=== PATIENT | female | born 1945 | race Caucasian/White ===

== ENCOUNTER 2025-03-28 08:18 | Inpatient (IN) | payer OTHER ==
[~2025-03-28] VITALS: Ht 157.5 cm; Wt 70.3 kg
[2025-03-28 08:23] VITALS: O2SAT 97
[2025-03-28 10:10] LABS: CLARITY URINE CLEAR (CLEAR); COLOR URINE YELLOW (YELLOW); GLUCOSE URINE NEGATIVE (NEGATIVE); KETONES URINE NEGATIVE (NEGATIVE); LEUKOCYTE ESTERASE URINE NEGATIVE (NEGATIVE); NITRITE URINE NEGATIVE (NEGATIVE); OCCULT BLOOD URINE TRACE (NEGATIVE); PH URINE 7.5 (4.5-8.0); PROTEIN URINE TRACE (NEGATIVE); SPECIFIC GRAVITY URINE 1.011 (1.005-1.030); UROBILINOGEN URINE 0.2 E.U./dL (0.2-1.0)
[2025-03-28 10:29] LABS: BASOPHILS % 0.6 % (0.0-2.0); EOSINOPHILS % 0.1 % (0.0-5.0); HEMATOCRIT. 37.8 % (36.0-48.0); HEMOGLOBIN. 11.8 g/dL (12.0-16.0); LYMPHOCYTES % 17.0 % (20.0-50.0); MEAN PLATELET VOLUME 9.7 fl (7.4-10.4); MONOCYTES % 7.8 % (2.0-8.0); NEUTROPHILS % 74.5 % (40.0-76.0); PLATELET 291 x1000/uL (130-400); RED BLOOD CELL COUNT 4.57 mill/uL (4.2-5.4); RED CELL DISTRIBUTION WIDTH 16.5 % (11.6-14.6)
[2025-03-28 10:43] LABS: CREATININE 1.3 mg/dL (0.6-1.0); UREA NITROGEN BLOOD 15 mg/dL (9-23)
[2025-03-28 10:44] LABS: TROPONIN I HIGH SENSITIVITY 33 ng/L (3.0-34)
[2025-03-28 11:15] LABS: BACTERIA URINE 1+; RBC URINE 0-2 /hpf (0-2); SQUAMOUS EPITHELIAL CELL URINE 1+ /lpf (RARE/1+); WBC URINE 0-2 /hpf (0-2)
[2025-03-28] MEDS ORDERED: IPRATROPIUM/ALBUTEROL 0.5-3(2.5)MG/3ML NEB HHN PRN (13:15)
[2025-03-28] MEDS ORDERED: ONDANSETRON HCL 4MG/2ML INJ IV PRN (13:15)
[2025-03-28] MEDS ORDERED: KETOROLAC 30MG/ML VIAL IV PRN (13:15)
[2025-03-28] MEDS ORDERED: GUAIFENESIN 200MG/10ML SUGAR FREE UDC PO PRN (13:15)
[2025-03-28] MEDS ORDERED: MORPHINE SULFATE 4 MG/ML INJ (FOR IV/IM USE) IV PRN (13:15)
[2025-03-28] MEDS: INSULIN LISPRO 100 UNITS/ML SUBCUT SCH (13:20)
[2025-03-28] MEDS ORDERED: DEXTROSE 50% WATER 50ML SYRINGE IV PRN (13:30)
[2025-03-28] MEDS ORDERED: NALOXONE HCL 0.4MG/ML VIAL IV PRN (13:30)
[2025-03-28] MEDS: FAMOTIDINE 20MG/2ML VIAL IV SCH (14:04)
[2025-03-28] MEDS: AMLODIPINE 5MG TABLET PO SCH (14:05)
[2025-03-28] MEDS: MORPHINE SULFATE 10 MG/ML INJ (NOT FOR IM USE) IV PRN (14:16)
[2025-03-28] MEDS: DEXT 5%/0.45% NACL 1000ML 1,000 ML IV SCH (14:27)
[2025-03-28] MEDS ORDERED: FAMO20TA8 PO (15:02)
[2025-03-28] MEDS ORDERED: SITA100T11 PO (15:02)
[2025-03-28] MEDS ORDERED: LOSA50TA41 PO (15:02)
[2025-03-28] MEDS ORDERED: DONE10TA43 PO (15:02)
[2025-03-28] MEDS ORDERED: ALEN70TA79 PO (15:02)
[2025-03-28] MEDS ORDERED: APIX2.5T PO (15:02)
[2025-03-28 15:29] VITALS: BP 178/78; PULSE 90; RESP 18; TEMP 36.8072
[2025-03-28] MEDS: CEFTRIAXONE 1GM/50ML 50 ML IV SCH (16:07)
[2025-03-28] MEDS: BLOOD SUGAR DIAGNOSTIC STRIP TEST SCH (16:11)
[2025-03-28 16:30] VITALS: BP 154/80; PULSE 80; RESP 18; TEMP 36.6; O2SAT 100
[2025-03-28] MEDS: HYDROCODONE/ACETAMINOPHEN 10/325MG TABLET PO PRN (17:16)
[2025-03-28 17:45] LABS: TRIGLYCERIDE 102 mg/dL (0-150)
[2025-03-28 17:46] LABS: LDL CHOLESTEROL 99 mg/dL (5-100)
[2025-03-28 17:47] LABS: ASPARTATE AMINOTRANSFERASE 31 IU/L (<34); BILIRUBIN DIRECT 0.2 mg/dL (<=3.0); BILIRUBIN TOTAL 0.5 mg/dL (0.1-1.0); PROTEIN TOTAL 6.9 g/dL (6.0-8.3)
[2025-03-28 17:50] LABS: T4 FREE 1.27 ng/dL (0.89-1.76)
[2025-03-28] MEDS ORDERED: ASPI-1497 PO (18:49)
[2025-03-28 19:28] LABS: TROPONIN I HIGH SENSITIVITY 27 ng/L (3.0-34)
[2025-03-28 19:30] LABS: PHOSPHORUS 2.5 mg/dL (2.5-4.9)
[2025-03-28 20:00] VITALS: BP 150/78; PULSE 83; RESP 18; TEMP 36.1; O2SAT 98
[2025-03-29] VITALS (7 sets, daily range): BP systolic 124–170; BP diastolic 68–83; PULSE 80–99; RESP 15–18; TEMP 36.3–36.7; O2SAT 96–98
[2025-03-29 07:34] LABS: TROPONIN I HIGH SENSITIVITY 24.0 ng/L (3.0-34)
[2025-03-29 07:39] LABS: CREATININE 1.3 mg/dL (0.6-1.0)
[2025-03-29 07:40] LABS: UREA NITROGEN BLOOD 10.0 mg/dL (9-23)
[2025-03-29 07:42] LABS: BASOPHILS % 0.6 % (0.0-2.0); EOSINOPHILS % 0.5 % (0.0-5.0); HEMATOCRIT. 37.2 % (36.0-48.0); HEMOGLOBIN. 11.6 g/dL (12.0-16.0); LYMPHOCYTES % 11.9 % (20.0-50.0); MEAN PLATELET VOLUME 10.3 fl (7.4-10.4); MONOCYTES % 5.9 % (2.0-8.0); NEUTROPHILS % 81.1 % (40.0-76.0); PLATELET 256 x1000/uL (130-400); RED BLOOD CELL COUNT 4.50 mill/uL (4.2-5.4); RED CELL DISTRIBUTION WIDTH 17.0 % (11.6-14.6)
[2025-03-29] MEDS: FERROUS SULFATE 325MG TABLET PO SCH (08:13)
[2025-03-29] MEDS: KETOROLAC 15MG/ML VIAL IV PRN (10:03)
[2025-03-29 12:43] LABS: *AMPHETAMINES SCREEN URINE NEGATIVE (NEGATIVE); *BARBITURATES SCREEN URINE NEGATIVE (NEGATIVE); *BENZODIAZEPINES SCREEN URINE NEGATIVE (NEGATIVE); *COCAINE SCREEN URINE NEGATIVE (NEGATIVE); CANNABINOID URINE SCREEN NEGATIVE (NEGATIVE); ECSTASY MDMA SCREEN URINE NEGATIVE (NEGATIVE); METHADONE URINE SCREEN NEGATIVE (NEGATIVE); OPIATES URINE SCREEN NEGATIVE (NEGATIVE); PHENCYCLIDINE URINE SCREEN NEGATIVE (NEGATIVE)
[2025-03-29] MEDS: CLONIDINE 0.1MG TABLET PO PRN (13:19)
[2025-03-29] MEDS: METOPROLOL SUCCINATE 50MG ER TABLET PO SCH (13:20)
[2025-03-30] VITALS: BP 120/60; PULSE 80; RESP 18; TEMP 36.1; O2SAT 98
[2025-03-30 04:00] VITALS: BP 130/59; PULSE 88; RESP 19; TEMP 36.7; O2SAT 100
[2025-03-30 04:25] LABS: PLATELET 263 x1000/uL (130-400); RED BLOOD CELL COUNT 4.60 mill/uL (4.2-5.4); RED CELL DISTRIBUTION WIDTH 17.1 % (11.6-14.6)
[2025-03-30 04:38] LABS: CREATININE 1.0 mg/dL (0.6-1.0); UREA NITROGEN BLOOD 9.0 mg/dL (9-23)
[2025-03-30 05:29] LABS: INR 1.0
[2025-03-30] MEDS ORDERED: VANCOMYCIN HCL 1GM VIAL ONE (06:03)
[2025-03-30] MEDS ORDERED: FENTANYL CITRATE/PF 50MCG/ML 2ML VIAL ONE (06:51)
[2025-03-30] MEDS ORDERED: PROPOFOL 200MG/20ML VIAL IV ONE (06:52)
[2025-03-30] MEDS ORDERED: EPHEDRINE SULFATE 50MG/ML VIAL ONE (06:52)
[2025-03-30] MEDS ORDERED: LIDOCAINE HCL 1% 10 MG/ML 10ML VIAL ONE (06:53)
[2025-03-30] MEDS ORDERED: TRANEXAMIC ACID 1000MG PREMIX 200 ML IV ONE (07:24)
[2025-03-30] MEDS ORDERED: ATROPINE SULFATE 1MG/10ML SYR ONE (07:34)
[2025-03-30] MEDS ORDERED: NEOSTIGMINE METHYLSULFATE 1MG/ML 10 ML VIAL ONE (07:34)
[2025-03-30] MEDS ORDERED: GLYCOPYRROLATE 0.2 MG/ML 2ML VIAL ONE ×2 (07:35)
[2025-03-30] MEDS ORDERED: ONDANSETRON HCL 4MG/2ML INJ ONE (07:43)
[2025-03-30] MEDS: LABETALOL 5MG/ML 4ML INJ IV NR (08:27)
[2025-03-30] MEDS: HYDROMORPHONE HCL/PF 1MG/ML INJ IV PRN ×2 (08:28→09:00)
[2025-03-30] MEDS ORDERED: HYDRALAZINE 20MG/ML VIAL IV PRN ×2 (08:30)
[2025-03-30] MEDS ORDERED: ONDANSETRON HCL 4MG/2ML INJ IV PRN (08:30)
[2025-03-30] MEDS ORDERED: FAMOTIDINE 20MG/2ML VIAL IV PRN (08:30)
[2025-03-30] MEDS ORDERED: MEPERIDINE HCL/PF 25MG/ML CPJ IV PRN (08:30)
[2025-03-30] MEDS ORDERED: LABETALOL 5MG/ML 4ML INJ IV PRN (08:30)
[2025-03-30] MEDS: ACETAMINOPHEN 1,000MG/100ML PREMIX IV PRN (08:34)
[2025-03-30] MEDS: ASPIRIN 325MG EC TABLET PO SCH (09:00)
[2025-03-30] MEDS ORDERED: CEFAZOLIN 1000MG PREMIX 50 ML IV SCH (09:00)
[2025-03-30 12:00] VITALS: BP 130/74; PULSE 120; RESP 19; TEMP 36.1; O2SAT 95
[2025-03-30] MEDS: CEFAZOLIN 1000MG PREMIX 50 ML IV SCH (14:04)
[2025-03-30 16:00] VITALS: BP 165/84; PULSE 104; RESP 16; TEMP 36.3; O2SAT 98
[2025-03-30 20:00] VITALS: BP 117/54; PULSE 86; RESP 18; TEMP 36.4; O2SAT 100
[2025-03-30] MEDS: BLOOD SUGAR DIAGNOSTIC STRIP TEST SCH (21:21)
[2025-03-31] VITALS: BP 107/58; PULSE 74; RESP 18; TEMP 36.8; O2SAT 95
[2025-03-31 04:00] VITALS: BP 108/56; PULSE 86; RESP 18; TEMP 36.4; O2SAT 97
[2025-03-31 08:00] VITALS: BP 132/64; PULSE 77; RESP 18; TEMP 36.6; O2SAT 97
[2025-03-31] MEDS: METOPROLOL SUCCINATE 25MG ER TABLET PO SCH (10:45)
[2025-03-31 12:00] VITALS: BP 117/57; PULSE 93; RESP 18; TEMP 36.6; O2SAT 96
[2025-03-31] MEDS: POTASSIUM CHLORIDE 20MEQ TABLET SR PO NR (12:07)
[2025-03-31 12:18] LABS: BASOPHILS % 0.3 % (0.0-2.0); EOSINOPHILS % 0.6 % (0.0-5.0); HEMATOCRIT. 33.3 % (36.0-48.0); HEMOGLOBIN. 10.5 g/dL (12.0-16.0); LYMPHOCYTES % 10.5 % (20.0-50.0); MEAN PLATELET VOLUME 10.1 fl (7.4-10.4); MONOCYTES % 11.0 % (2.0-8.0); NEUTROPHILS % 77.6 % (40.0-76.0); PLATELET 245 x1000/uL (130-400); RED BLOOD CELL COUNT 4.03 mill/uL (4.2-5.4); RED CELL DISTRIBUTION WIDTH 17.1 % (11.6-14.6)
[2025-03-31 13:32] LABS: CREATININE 1.1 mg/dL (0.6-1.0); UREA NITROGEN BLOOD 12 mg/dL (9-23)
[2025-03-31 13:34] LABS: ASPARTATE AMINOTRANSFERASE 90 IU/L (<34); BILIRUBIN TOTAL 0.8 mg/dL (0.1-1.0); PROTEIN TOTAL 5.9 g/dL (6.0-8.3)
[2025-03-31 16:00] VITALS: BP 123/71; PULSE 101; RESP 18; TEMP 36.6; O2SAT 95
[2025-03-31 20:00] VITALS: BP 140/59; PULSE 87; RESP 18; TEMP 36.3; O2SAT 97
[2025-04-01] VITALS: BP 132/67; PULSE 96; RESP 18; TEMP 36.6; O2SAT 96
[2025-04-01 07:02] LABS: CREATININE 1.0 mg/dL (0.6-1.0); UREA NITROGEN BLOOD 16.0 mg/dL (9-23)
[2025-04-01 07:22] LABS: BASOPHILS % 0.1 % (0.0-2.0); EOSINOPHILS % 0.3 % (0.0-5.0); HEMATOCRIT. 33.4 % (36.0-48.0); HEMOGLOBIN. 10.7 g/dL (12.0-16.0); LYMPHOCYTES % 10.8 % (20.0-50.0); MEAN PLATELET VOLUME 10.2 fl (7.4-10.4); MONOCYTES % 11.7 % (2.0-8.0); NEUTROPHILS % 77.1 % (40.0-76.0); PLATELET 255 x1000/uL (130-400); RED BLOOD CELL COUNT 4.14 mill/uL (4.2-5.4); RED CELL DISTRIBUTION WIDTH 17.0 % (11.6-14.6)
[2025-04-01 08:00] VITALS: BP 128/65; PULSE 80; RESP 17; TEMP 36.1; O2SAT 98
[2025-04-01 12:00] VITALS: BP 141/73; PULSE 90; RESP 18; RESP 28; TEMP 37.2; O2SAT 100
[2025-04-01 16:00] VITALS: BP 123/58; PULSE 85; RESP 18; TEMP 36.8; O2SAT 98
[2025-04-01 16:40] VITALS: PULSE 85; PULSE 96; RESP 18; RESP 20; TEMP 37
[2025-04-02 00:23] VITALS: BP 134/79; PULSE 93; RESP 18; TEMP 36.7; O2SAT 100
[2025-04-02 04:55] VITALS: BP 137/68; PULSE 90; RESP 17; TEMP 36.6; O2SAT 97
[2025-04-02 08:00] VITALS: BP 139/61; PULSE 88; RESP 18; TEMP 37.3
[2025-04-02 12:00] VITALS: BP 97/58; PULSE 97; RESP 18; TEMP 36.7
[2025-04-02 16:00] VITALS: BP 132/72; PULSE 116; RESP 20; TEMP 37.1; O2SAT 93
[2025-04-02 18:46] LABS: CREATININE 1.1 mg/dL (0.6-1.0); UREA NITROGEN BLOOD 26.0 mg/dL (9-23)
[2025-04-02 20:00] VITALS: BP 126/62; PULSE 110; RESP 17; TEMP 36.5; O2SAT 98
[2025-04-03] VITALS: BP 107/50; PULSE 99; RESP 17; TEMP 36.6; O2SAT 97
[2025-04-03 04:00] VITALS: BP 122/65; PULSE 96; RESP 18; TEMP 36.7; O2SAT 97
[2025-04-03 08:00] VITALS: BP 127/55; PULSE 84; RESP 17; TEMP 36.7; O2SAT 95
[2025-04-03 12:00] VITALS: BP 133/58; PULSE 87; RESP 18; TEMP 36.7; O2SAT 98
[2025-04-03 16:00] VITALS: BP 131/69; PULSE 81; RESP 19; TEMP 36.6; O2SAT 96
[2025-04-03 20:00] VITALS: BP 126/76; PULSE 86; RESP 17; TEMP 36.5; O2SAT 98
[2025-04-04] VITALS: BP 116/57; PULSE 92; RESP 16; TEMP 36.4; O2SAT 99
[2025-04-04 04:00] VITALS: BP 110/65; PULSE 68; RESP 16; TEMP 36.4; O2SAT 100
[2025-04-04 06:26] LABS: PLATELET 338 x1000/uL (130-400); RED BLOOD CELL COUNT 3.68 mill/uL (4.2-5.4); RED CELL DISTRIBUTION WIDTH 17.2 % (11.6-14.6)
[2025-04-04 08:00] VITALS: BP 133/64; PULSE 78; RESP 17; TEMP 37; O2SAT 98
[2025-04-04 12:00] VITALS: BP 109/60; PULSE 97; RESP 17; TEMP 37; O2SAT 98
[2025-04-04 16:00] VITALS: BP 136/75; PULSE 99; RESP 17; TEMP 36.6; O2SAT 97
[2025-04-04 20:00] VITALS: BP 125/65; PULSE 78; RESP 18; TEMP 36.2; O2SAT 96
[2025-04-04 23:00] LABS: CREATININE 1.2 mg/dL (0.6-1.0); UREA NITROGEN BLOOD 23 mg/dL (9-23)
[2025-04-05 00:31] VITALS: BP 131/66; PULSE 88; RESP 1; TEMP 36.4; O2SAT 98
[2025-04-05 04:00] VITALS: BP 115/61; PULSE 80; RESP 18; TEMP 36.5; O2SAT 97
[2025-04-05] MEDS: FERROUS SULFATE 325MG TABLET PO SCH (07:21)
[2025-04-05 08:00] VITALS: BP 130/72; PULSE 85; RESP 19; TEMP 36.4; O2SAT 97
[2025-04-05] MEDS: DOCUSATE SODIUM 100MG CAPSULE PO PRN (08:16)
[2025-04-05] MEDS: ACETAMINOPHEN 325MG TABLET PO PRN (09:30)
[2025-04-05 12:00] VITALS: BP 119/65; PULSE 67; RESP 18; TEMP 36.4; O2SAT 95
[2025-04-05 16:00] VITALS: BP 134/79; PULSE 73; RESP 16; TEMP 36.6; O2SAT 97
[2025-04-05 20:00] VITALS: BP 150/77; PULSE 94; RESP 15; TEMP 36.5; O2SAT 99
[2025-04-06] VITALS: BP 131/66; PULSE 87; RESP 16; TEMP 36.7; O2SAT 99
[2025-04-06 04:00] VITALS: BP 139/71; PULSE 89; RESP 15; TEMP 36.3; O2SAT 99
[2025-04-06 08:00] VITALS: BP 133/72; PULSE 82; RESP 17; TEMP 36.8; O2SAT 99
[2025-04-06 12:00] VITALS: BP 146/72; PULSE 81; RESP 18; TEMP 36.8; O2SAT 98
[2025-04-06 16:00] VITALS: BP 135/80; PULSE 84; RESP 18; TEMP 36.5; O2SAT 98
[2025-04-06 20:00] VITALS: BP 138/75; PULSE 88; RESP 16; TEMP 36.2; O2SAT 98
[2025-04-07 00:42] VITALS: BP 133/87; PULSE 88; RESP 18; TEMP 36.3; O2SAT 97
[2025-04-07 04:31] VITALS: BP 128/77; PULSE 83; RESP 17; TEMP 37.3
[2025-04-07 08:00] VITALS: BP 150/74; PULSE 92; RESP 17; TEMP 36.6; O2SAT 97
[2025-04-07 12:00] VITALS: BP 163/86; PULSE 99; RESP 17; TEMP 36.7; O2SAT 98
[2025-04-07 16:00] VITALS: BP 129/73; PULSE 83; RESP 16; TEMP 36.8; O2SAT 97
[2025-04-07 20:00] VITALS: BP 132/72; PULSE 88; RESP 19; TEMP 36.4; O2SAT 96
[2025-04-08] VITALS: BP_SYST 145; BP_DIAS 75; BP_DIAS 78; PULSE 93; RESP 19; TEMP 36.2; O2SAT 97; O2SAT 99
[2025-04-08 04:00] VITALS: BP 157/81; PULSE 82; RESP 18; TEMP 36.4; O2SAT 99
[2025-04-08 08:00] VITALS: BP 121/60; PULSE 90; RESP 18; TEMP 36.6; O2SAT 100
[2025-04-08 12:00] VITALS: BP 130/72; PULSE 82; RESP 17; TEMP 36.4; O2SAT 100
[2025-04-08 16:00] VITALS: BP 125/70; PULSE 93; RESP 17; TEMP 36.8; O2SAT 100
[2025-04-08 20:00] VITALS: BP 108/50; PULSE 78; RESP 19; TEMP 36.4; O2SAT 98
[2025-04-09] VITALS: BP 121/60; PULSE 81; RESP 19; TEMP 36.4; O2SAT 98
[2025-04-09 04:00] VITALS: BP 121/60; PULSE 78; RESP 19; TEMP 36.7; O2SAT 99
[2025-04-09 06:39] LABS: PLATELET 542 x1000/uL (130-400); RED BLOOD CELL COUNT 4.01 mill/uL (4.2-5.4); RED CELL DISTRIBUTION WIDTH 17.8 % (11.6-14.6)
[2025-04-09 06:53] LABS: CREATININE 1.0 mg/dL (0.6-1.0); UREA NITROGEN BLOOD 20.0 mg/dL (9-23)
[2025-04-09 08:00] VITALS: BP 105/47; PULSE 64; RESP 18; TEMP 36.4; O2SAT 100
[2025-04-09 12:00] VITALS: BP 103/84; PULSE 80; RESP 16; TEMP 36.2; O2SAT 100
[2025-04-09 16:00] VITALS: BP 109/62; PULSE 87; RESP 18; TEMP 36.6; O2SAT 100
[2025-04-09 20:00] VITALS: BP 101/55; PULSE 83; RESP 16; TEMP 36.5; O2SAT 99
[2025-04-10] VITALS: BP 100/58; PULSE 75; RESP 16; TEMP 36.5; O2SAT 99
[2025-04-10 04:00] VITALS: BP 117/63; PULSE 85; RESP 17; TEMP 36.3; O2SAT 100
[2025-04-10 08:35] VITALS: BP 118/79; PULSE 71; RESP 16; O2SAT 100
[2025-04-10 12:00] VITALS: BP 108/67; PULSE 82; RESP 16; TEMP 36.7; O2SAT 94
[2025-04-10 16:00] VITALS: BP 103/61; PULSE 88; RESP 16; RESP 20; TEMP 36.5; O2SAT 99
[2025-04-10 20:00] VITALS: BP 113/60; PULSE 99; RESP 16; TEMP 36.7; O2SAT 99
[2025-04-11] VITALS: BP 109/55; PULSE 96; RESP 18; TEMP 36.7; O2SAT 98
[2025-04-11 04:00] VITALS: BP 112/61; PULSE 76; RESP 16; TEMP 36.7; O2SAT 100
[2025-04-11 08:00] VITALS: BP 109/69; PULSE 78; RESP 18; TEMP 36.2; O2SAT 100
[2025-04-11 12:00] VITALS: BP 111/50; PULSE 74; RESP 18; TEMP 36.1; O2SAT 97
[2025-04-11 16:00] VITALS: BP 110/54; PULSE 78; RESP 18; TEMP 36.3; O2SAT 96
[2025-04-11 20:00] VITALS: BP 124/60; PULSE 81; RESP 20; TEMP 36.4; O2SAT 99
[2025-04-12] VITALS: BP 126/57; PULSE 85; RESP 18; TEMP 36.9; O2SAT 98
[2025-04-12 04:00] VITALS: BP 122/63; PULSE 80; RESP 16; TEMP 37.1; O2SAT 99
[2025-04-12 08:00] VITALS: BP 121/58; PULSE 70; RESP 18; TEMP 36.5; O2SAT 99
[2025-04-12 12:00] VITALS: BP 101/50; PULSE 78; RESP 18; TEMP 36.8; O2SAT 98
[2025-04-12 16:00] VITALS: BP 107/48; PULSE 82; RESP 18; TEMP 36.8; O2SAT 98
[2025-04-12 20:00] VITALS: BP 112/56; PULSE 80; RESP 18; TEMP 36.8; O2SAT 97
[2025-04-13] VITALS: BP 99/40; PULSE 74; RESP 17; TEMP 36.9; O2SAT 96
[2025-04-13 04:00] VITALS: BP 114/63; PULSE 75; RESP 17; TEMP 36.7; O2SAT 97
[2025-04-13 08:00] VITALS: BP 137/94; PULSE 76; RESP 18; TEMP 36.4; O2SAT 100
[2025-04-13 08:47] LABS: CREATININE 1.1 mg/dL (0.6-1.0); UREA NITROGEN BLOOD 20 mg/dL (9-23)
[2025-04-13 08:49] LABS: PHOSPHORUS 2.5 mg/dL (2.5-4.9)
[2025-04-13 08:56] LABS: BASOPHILS % 0.3 % (0.0-2.0); EOSINOPHILS % 0.5 % (0.0-5.0); HEMATOCRIT. 33.7 % (36.0-48.0); HEMOGLOBIN. 10.2 g/dL (12.0-16.0); LYMPHOCYTES % 25.0 % (20.0-50.0); MEAN PLATELET VOLUME 9.3 fl (7.4-10.4); MONOCYTES % 10.1 % (2.0-8.0); NEUTROPHILS % 64.1 % (40.0-76.0); PLATELET 659 x1000/uL (130-400); RED BLOOD CELL COUNT 4.00 mill/uL (4.2-5.4); RED CELL DISTRIBUTION WIDTH 18.9 % (11.6-14.6)
[2025-04-13 12:00] VITALS: BP 110/56; PULSE 75; RESP 18; TEMP 36.4; O2SAT 98
[2025-04-13 16:00] VITALS: BP 102/52; PULSE 77; RESP 19; TEMP 36.1; O2SAT 95
[2025-04-13 20:00] VITALS: BP 129/69; PULSE 84; RESP 18; TEMP 36.5; O2SAT 98
[2025-04-14] VITALS: BP 131/65; PULSE 89; RESP 17; TEMP 36.4; O2SAT 98
[2025-04-14 04:00] VITALS: BP 114/61; PULSE 81; RESP 18; TEMP 36.7; O2SAT 98
[2025-04-14 08:00] VITALS: BP 99/58; PULSE 60; RESP 18; TEMP 36.4; O2SAT 100
[2025-04-14 12:00] VITALS: BP 110/60; PULSE 75; RESP 18; TEMP 36.7; O2SAT 99
[2025-04-14 16:00] VITALS: BP 116/60; PULSE 73; RESP 18; TEMP 36.8; O2SAT 100
[2025-04-14 20:00] VITALS: BP 101/54; PULSE 69; RESP 18; TEMP 36.4; O2SAT 98
[2025-04-15] VITALS: BP 112/72; PULSE 76; RESP 18; TEMP 36.4; O2SAT 100
[2025-04-15 04:00] VITALS: BP 128/73; PULSE 78; RESP 18; TEMP 36.3; O2SAT 100
[2025-04-15 08:00] VITALS: BP 100/48; PULSE 68; RESP 16; TEMP 36.6; O2SAT 100
[2025-04-15] MEDS ORDERED: FERR-63 PO (10:56)
[2025-04-15] MEDS ORDERED: AMLO5TAB88 PO (10:56)
[2025-04-15 12:00] VITALS: BP 117/47; PULSE 67; RESP 16; TEMP 36.2; O2SAT 97
[2025-04-15 13:57] VITALS: BP 100/48; PULSE 68; RESP 16; TEMP 97.8
[2025-04-15 16:00] VITALS: BP 112/59; PULSE 81; RESP 16; TEMP 36.4; O2SAT 98
== END 2025-04-15 16:56 | disposition home or self-care (01) | DRG 469 ==
LOC: ER 08:18 → 8WST 11:50 → EDBEDREQ 11:53 → EDBEDREQTM 11:53 → ENRESERV 12:25 → 8EST 04-01 00:14
PROVIDERS: ADMIT Hospitalist; ATTEND Hospitalist
PROC: 0SRR0JZ Replacement of Right Hip Joint, Femoral Surface with Synthetic Substitute, Open Approach (ICD-10-PCS; principal; 2025-03-30)
DX: S72.8X1A Other fracture of right femur, initial encounter for closed fracture (principal); G93.41 Metabolic encephalopathy; N17.0 Acute kidney failure with tubular necrosis; I13.0 Hypertensive heart and chronic kidney disease with heart failure and stage 1 through stage 4 chronic kidney disease, or unspecified chronic kidney disease; G90.89 Other disorders of autonomic nervous system; E83.52 Hypercalcemia; E86.0 Dehydration; I16.0 Hypertensive urgency; N18.9 Chronic kidney disease, unspecified; E11.22 Type 2 diabetes mellitus with diabetic chronic kidney disease; B35.9 Dermatophytosis, unspecified; D50.9 Iron deficiency anemia, unspecified; E87.6 Hypokalemia; I50.9 Heart failure, unspecified; F03.90 Unspecified dementia, unspecified severity, without behavioral disturbance, psychotic disturbance, mood disturbance, and anxiety; M81.0 Age-related osteoporosis without current pathological fracture; W18.39XA Other fall on same level, initial encounter; Z79.01 Long term (current) use of anticoagulants; Z79.4 Long term (current) use of insulin; I25.2 Old myocardial infarction; Z79.82 Long term (current) use of aspirin; Z79.84 Long term (current) use of oral hypoglycemic drugs; Z79.899 Other long term (current) drug therapy; Z86.16 Personal history of COVID-19; Z87.891 Personal history of nicotine dependence; Z90.710 Acquired absence of both cervix and uterus; Y93.89 Activity, other specified; Y99.8 Other external cause status; Y92.89 Other specified places as the place of occurrence of the external cause
CPT/HCPCS: 36415; 71045; 72170; 73552; 80048; 80053; 80061; 80076; 80305; 81003; 82550; 82728; 82962; 83036; 83540; 83550; 83735; 84100; 84300; 84439; 84443; 84484; 85025; 85027; 86850; 86900; 88305; 88311; 92523; 92610; 93005; 93306; 93970; 94640; 97110; 97116; 97162; 97166; 97530; 97535; 99285; J0461; J0690; J0696; J1171; J1308; J1815; J1885; J2003; J2270; J2405; J2704; J2710; J3010; J3373; J3490; C1776; J0131